=== PATIENT | male | born 1975 | race Caucasian/White ===

== ENCOUNTER → 2019-04-15 | Outpatient (CLI) | payer BC ==
--- NOTE | 2019-04-15 09:10 | REP ---
Chest x-ray: Two views. History: Cough. Findings: An azygos lobe is noted incidentally in the right apex. The lungs are well inflated and clear. Pleural angles are sharp. Heart size is normal. Pulmonary vasculature is not increased. No bony abnormalities appreciated. Impression: Negative chest x-ray. Azygos lobe noted incidentally. Electronically Signed by Sean Cullen MD 04/15/2019 09:02 A
== END ==
LOC: M WUC 08:49
PROVIDERS: ATTEND Physician Assistant
DX: R05 Cough (principal)

== ENCOUNTER 2020-03-21 07:54 | Emergency (ER) | payer BC, OTHER ==
[~2020-03-21] VITALS: Ht 185.4 cm; Wt 98.5 kg
[2020-03-21 07:54] VITALS: BP 133/75
[2020-03-21] MEDS ORDERED: PARO30TA4 (08:06)
[2020-03-21] MEDS ORDERED: BOOSTRIX/ADACEL VACCINE (DIPHTH/PERTUSS/ACELL/TETANUS) 0.5ML SYR IM ONE (08:15)
--- NOTE | 2020-03-21 08:44 | REP ---
INDICATION: TRAUMA RIGTH THRUMB COMPARISON: None. TECHNIQUE: AP, lateral, bilateral oblique views right 1st digit. FINDINGS: Subtle soft tissue injury with partial amputation to the soft tissues overlying the tip of the distal phalanx is appreciated. No definite acute bony fracture is appreciated. IMPRESSION: Soft tissue injury at the tip of the distal phalanx/terminal tuft. <Electronically signed by Colton Sauer > 03/21/20 [id number]
== END 2020-03-21 08:52 | disposition home or self-care (01) ==
LOC: M ED 07:54
DX: S61.001A Unspecified open wound of right thumb without damage to nail, initial encounter (principal); W23.1XXA Caught, crushed, jammed, or pinched between stationary objects, initial encounter; Y92.019 Unspecified place in single-family (private) house as the place of occurrence of the external cause; Y93.9 Activity, unspecified; Y99.9 Unspecified external cause status

== ENCOUNTER → 2020-05-28 | Outpatient (CLI) | payer BC, OTHER ==
[~2020-05-28] MED LIST: PARO30TA4
--- NOTE | 2020-05-28 15:57 | REP ---
INDICATION: CONTUSION COMPARISON: None. TECHNIQUE: AP, lateral, coned-down views of the lumbar spine. FINDINGS: Three views of the lumbosacral spine demonstrate satisfactory alignment and lordosis without acute fracture / compression injury or subluxation. IMPRESSION: 1. No acute fracture / compression injury or subluxation. <Electronically signed by Colton Sauer > 05/28/20 [id number]
== END ==
LOC: M WUC 15:08
PROVIDERS: ATTEND Physician Assistant
DX: S30.0XXA Contusion of lower back and pelvis, initial encounter (principal); X58.XXXA Exposure to other specified factors, initial encounter; Y92.89 Other specified places as the place of occurrence of the external cause; Y93.89 Activity, other specified; Y99.8 Other external cause status

== ENCOUNTER 2020-09-17 18:36 | Emergency (ER) | payer BC, OTHER ==
[~2020-09-17] VITALS: Ht 185.4 cm; Wt 91.6 kg
[2020-09-17] MEDS ORDERED: ISOVUE-370 76% 100ML VIAL As Ordered ONE (21:01)
[2020-09-17 21:03] LABS: BASO # 0.1 10^3/uL (0.0-0.2); EOS # 0.1 10^3/uL (0.0-0.5); EOS % 1.9 % (0.0-3.0); HEMATOCRIT 39.8 % (42.0-52.0); HEMOGLOBIN 13.7 g/dl (13.5-17.5); LYMPH % 33.3 % (24.0-44.0); MEAN CORPUSCULAR HEMOGLOBIN 31.9 pg (27.0-33.0); MEAN CORPUSCULAR HGB CONC 34.4 g/dl (32.0-36.5); MEAN CORPUSCULAR VOLUME 92.8 fl (80.0-96.0); MONO # 0.5 10^3/uL (0.0-0.8); NEUTROPHILS # 3.3 10^3/uL (1.5-8.5); NEUTROPHILS % 55.6 % (36.0-66.0); PLATELET COUNT, AUTOMATED 208 10^3/uL (150-450); RED BLOOD COUNT 4.29 10^6/uL (4.30-6.10); WHITE BLOOD COUNT 5.9 10^3/uL (4.0-10.0)
[2020-09-17 21:12] LABS: INR 1.1; PROTHROMBIN TIME 14.4 SECONDS (12.5-14.3)
[2020-09-17 21:13] LABS: PARTIAL THROMBOPLASTIN TIME 27.5 SECONDS (24.2-38.5)
[2020-09-17 21:34] LABS: ERYTHROCYTE SEDIMENTATION RATE 3 mm/hr (0-15)
--- NOTE | 2020-09-17 21:53 | REPVR ---
PROCEDURE INFORMATION: Exam: CTA Chest With Contrast Exam date and time: 09/17/2020 9:16 PM Age: 44 years old Clinical indication: Shortness of breath; Additional info: SOB elevated d dimer 751, RO pe TECHNIQUE: Imaging protocol: Computed tomographic angiography of the chest with contrast. 3D rendering (Not supervised by radiologist): MIP and/or 3D reconstructed images were created by the technologist. Radiation optimization: All CT scans at this facility use at least one of these dose optimization techniques: automated exposure control; mA and/or kV adjustment per patient size (includes targeted exams where dose is matched to clinical indication); or iterative reconstruction. Contrast material: ISOVUE 370; Contrast volume: 75 ml; Contrast route: INTRAVENOUS (IV); COMPARISON: CO CHEST 2 VIEW 04/15/2019 8:59 AM FINDINGS: Pulmonary arteries: Normal. No pulmonary emboli. Aorta: Unremarkable. No aortic aneurysm. No aortic dissection. Lungs: Unremarkable. No consolidation. No masses. Pleural spaces: Unremarkable. No pneumothorax. No pleural effusion. Heart: Unremarkable. No cardiomegaly. No pericardial effusion. Lymph nodes: Unremarkable. No enlarged lymph nodes. Bones/joints: Unremarkable. No acute fracture. Soft tissues: Unremarkable. IMPRESSION: No acute findings. Electronically signed by: Jimbo Mclean On 09/17/2020 21:52:58 PM
--- NOTE | 2020-09-17 21:54 | REPVR ---
PROCEDURE INFORMATION: Exam: XR Right Ankle Exam date and time: 09/17/2020 9:10 PM Age: 44 years old Clinical indication: Other: Swollen tender; Additional info: Swollen tender area, ecchymosis TECHNIQUE: Imaging protocol: XR Right ankle. Views: 3 or more views. COMPARISON: [place] TIBIA/FIBULA AP/LAT 09/17/2020 3:50 PM FINDINGS: Bones/joints: Normal. Soft tissues: Normal. IMPRESSION: No acute findings. Electronically signed by: Jimbo Mclean On 09/17/2020 21:53:49 PM
--- NOTE | 2020-09-17 21:55 | REPVR ---
PROCEDURE INFORMATION: Exam: XR Right Foot Exam date and time: 09/17/2020 9:10 PM Age: 44 years old Clinical indication: Other: Swollen tender; Additional info: Swollen tender area, ecchymosis TECHNIQUE: Imaging protocol: XR Right foot. Views: 3 or more views. COMPARISON: [place] TIBIA/FIBULA AP/LAT 09/17/2020 3:50 PM FINDINGS: Bones/joints: Normal. Soft tissues: Normal. IMPRESSION: No acute findings. Electronically signed by: Jimbo Mclean On 09/17/2020 21:54:32 PM
--- NOTE | 2020-09-17 21:56 | REPVR ---
PROCEDURE INFORMATION: Exam: XR Right Knee Exam date and time: 09/17/2020 9:10 PM Age: 44 years old Clinical indication: Other: Swollen; Additional info: Swollen tender area TECHNIQUE: Imaging protocol: XR Right knee. Views: 4 or more views. COMPARISON: [place] TIBIA/FIBULA AP/LAT 09/17/2020 3:50 PM FINDINGS: Bones/joints: Normal. Soft tissues: Normal. IMPRESSION: No acute findings. Electronically signed by: Jimbo Mclean On 09/17/2020 21:55:26 PM
--- NOTE | 2020-09-17 21:57 | REPVR ---
PROCEDURE INFORMATION: Exam: US Duplex Right Lower Extremity Veins, Limited Exam date and time: 09/17/2020 9:18 PM Age: 44 years old Clinical indication: Pain; Leg, lower; Right; Additional info: Calf pain, SOB, RO dvt TECHNIQUE: Imaging protocol: Real-time Duplex ultrasound of the Right Lower Extremity with 2-D ray scale, color Doppler flow and spectral waveform analysis with image documentation. Limited exam was focused on the right lower extremity veins. COMPARISON: 1. [place] TIBIA/FIBULA AP/LAT 09/17/2020 3:50 PM 2. CR Ankle, complete RIGHT 09/17/2020 8:54 PM FINDINGS: Right deep veins: Unremarkable. The common femoral, femoral, proximal profunda femoral and popliteal veins are patent without thrombus. Normal Doppler waveforms. Normal compressibility and/or augmentation response. Right superficial veins: Unremarkable. Saphenofemoral junction is patent without thrombus. Soft tissues: Examination of the soft tissues of the medial calf demonstrate the presence of a 5 x 1.3 x 2.2 cm complex hypoechoic mass with enhanced through transmission suggesting a fluid content. Hyperdense foci demonstrated as well. Findings consistent with an acute hematoma. IMPRESSION: 1. Findings consistent with an acute hematoma in the medial right calf. 2. No DVT. Electronically signed by: Jimbo Mclean On 09/17/2020 21:57:24 PM
[2020-09-17 22:22] VITALS: BP 136/85
== END 2020-09-17 22:26 | disposition home or self-care (01) ==
LOC: M ED 18:36
DX: M25.461 Effusion, right knee (principal); S80.11XA Contusion of right lower leg, initial encounter; W17.89XA Other fall from one level to another, initial encounter; Y92.89 Other specified places as the place of occurrence of the external cause; Y93.89 Activity, other specified; Y99.8 Other external cause status; F41.9 Anxiety disorder, unspecified; Z79.899 Other long term (current) drug therapy; Z90.49 Acquired absence of other specified parts of digestive tract; Z82.49 Family history of ischemic heart disease and other diseases of the circulatory system
CPT/HCPCS: 71275; 73564; 73610; 73630; 80047; 85025; 85610; 85652; 85730; 86140; 93971; 99284; Q9967

== ENCOUNTER → 2020-09-17 | Outpatient (CLI) | payer BC, OTHER ==
--- NOTE | 2020-09-17 16:34 | REP ---
INDICATION: CONTUSION/PAIN. COMPARISON: None. TECHNIQUE: AP and lateral FINDINGS: No acute fracture or destructive osseous lesion IMPRESSION: Negative exam <Electronically signed by Bruno Montana > 09/17/20 [id number]
== END ==
LOC: M WUC 15:32
PROVIDERS: ATTEND Physician Assistant
DX: S80.11XA Contusion of right lower leg, initial encounter (principal); X58.XXXA Exposure to other specified factors, initial encounter; Y92.89 Other specified places as the place of occurrence of the external cause; Y93.9 Activity, unspecified; Y99.9 Unspecified external cause status

== ENCOUNTER → 2021-01-22 | Outpatient (REF) | payer BC, OTHER | LOC: M LAB REF 16:48 | PROVIDERS: ATTEND Internal Medicine | DX: M25.50 Pain in unspecified joint (principal) ==

== ENCOUNTER → 2021-08-17 | Outpatient (CLI) | payer BC, OTHER | LOC: M WUC 13:32 | PROVIDERS: ATTEND Internal Medicine | DX: R06.02 Shortness of breath (principal) ==

== ENCOUNTER → 2023-05-09 | Outpatient (CLI) | payer BC, OTHER | LOC: M SLEEP 20:00 | PROVIDERS: ATTEND Physician Assistant | DX: R40.0 Somnolence (principal) ==

== ENCOUNTER → 2025-02-26 | Outpatient (CLI) | payer OTHER | LOC: M RAD 08:09 | PROVIDERS: ATTEND Internal Medicine | DX: R74.01 Elevation of levels of liver transaminase levels (principal) ==